=== PATIENT | female | born 2000 | race Caucasian/White ===

== ENCOUNTER 2024-07-26 20:12 | Emergency (ER) | payer MEDICAID, SELFPAY ==
--- OUTSIDE RECORDS SUMMARY | 2024-07-26 20:15 | XMS_ITS | Referral Summary ---
Author Organization [place] Address [address] [place] [address] Care Team Providers Care Potato Inspector Name Role Phone [facility], [facility] Primary Care Provider Allergies No known active allergies Social History Tobacco Use Types Packs/Day Years Used Date Smoking Tobacco: Never Assessed Comments Unknown Sex and Gender Information Value Date Recorded Sex Assigned at Not on file Legal Sex Female 4:37 AM MANAGER OF PHOTOGRAPHY Gender Identity Not on file Sexual Orientation Not on file Last Filed Vital Signs Vital Sign Reading Time Taken Comments Blood Pressure 150/108 05/10/2019 11:26 PM MANAGER OF PHOTOGRAPHY Pulse 90 05/10/2019 11:26 PM MANAGER OF PHOTOGRAPHY Temperature 36.4 C (97.6 F) 05/10/2019 8:11 PM MANAGER OF PHOTOGRAPHY Respiratory Rate 18 05/10/2019 8:11 PM MANAGER OF PHOTOGRAPHY Oxygen Saturation 100% 05/10/2019 11:28 PM MANAGER OF PHOTOGRAPHY Inhaled Oxygen Concentration - - Weight 81.2 kg (179 lb) 05/10/2019 10:32 PM MANAGER OF PHOTOGRAPHY Height - - Body Mass Index - - Plan of Treatment Not on file Insurance [place] Care Teams Potato Inspector Relationship Specialty Start Date End Date [address] [address] PCP - General 05/10/19
--- OUTSIDE RECORDS SUMMARY | 2024-07-26 20:15 | XMS_ITS | Clinical Summary ---
Author Organization [email or web address] Address [place], [place] [address] Care Team Providers Care Interior Design Professor Name Role Phone Jama Bustillos MD Unavailable [phone] Laila Gaytan MD Primary Care Provider Allergies No known active allergies Medications ketoconazole 2% shampoo (NIZORAL) 2 % shampooIndications :Seborrheic dermatitis of scalp Shampoo the hair thoroughly each day for 3 days. 120 mL 1 08/03/19 21 Active polyethylene glycoL (MIRALAX) 17 gram/dose powderIndications: Chronic constipation Take 17 g by mouth 2 times daily if needed for Constipation. 1 jar 11 08/03/19 21 Active Wrq-Sh-Ezotaoad 0.18/0.215/0.25 mg-25 mcg tablet Take 1 Tablet by mouth once daily. 10/16/19 22 Active meclizine (ANTIVERT) 25 mg tabletIndications: Vertigo Take 1 Tablet (25 mg) by mouth 3 times daily if needed for Vertigo. 30 Tablet 07/25/19 23 Active krill oil 500 mg cap Take 1 Capsule by mouth once daily. 0 08/28/19 23 Active Red Yeast Rice Extract 600 mg capIndications:Mix ed hyperlipidemia 1200 mg daily 0 08/28/19 23 Active spironolactone (ALDACTONE) 50 mg tabletIndications: PCOS (polycystic ovarian syndrome),Other acne Take 1 Tablet (50 mg) by mouth once daily. 90 Tablet 3 01/28/20 24 Active levothyroxine (SYNTHROID) 75 mcg tabletIndications: Other specified hypothyroidism TAKE 1 TABLET BY MOUTH 6 DAYS PER WEEK AND 1/2 TABLET ON SUNDAYS. 90 Tablet 3 02/01/20 24 Active metFORMIN (GLUCOPHAGE XR) 500 mg Extended-Release tabletIndications: PCOS (polycystic ovarian syndrome) TAKE 4 TABLETS BY MOUTH EVERY MORNING 360 Tablet 1 03/09/20 24 Active Additional Information Patient taking differently: 500 mg Oral DAILY, TAKE 2 TABLETS BY MOUTH EVERY MORNING, Reported on 06/25/2024 semaglutide, weight loss, (Wegovy) 0.5 mg/0.5 mL subcutaneous penIndications:Obe sity (BMI 30-39.9),PCOS (polycystic ovarian syndrome) Inject 0.5 mg subcutaneous once weekly. 4 Pen 11 04/22/20 24 Active citalopram (CELEXA) 20 mg tabletIndications: Anxiety Take 1 Tablet (20 mg) by mouth once daily in the morning. 100 Tablet 3 06/25/20 24 Active citalopram (CELEXA) 10 mg tabletIndications: Anxiety Take 1 Tablet (10 mg) by mouth once daily in the morning. Take in addition to 20 mg tablet for total of 30 mg daily. 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 CVA, old, dysarthria - per CT in Jul 19982010 Deviated nasal septum 01/12/2009 Unspecified delay in development(315.9) 02/25/20 08 Overview (02/25/2008): L hemiplegia probably due to CVA Hemiplegia is now resolved Delayed growth and development 02/25/2008 Overview (04/26/2021): L hemiplegia probably due to CVA Hemiplegia is now resolved Resolved Problems Problem Noted Date Diagnosed Date Resolved Date Hemiplegia 08/24/2010 08/24/2010 Nose disorder 12/06/2008 01/12/2009 Overview (12/06/2008): abnormal bone in nose causing nose bleeds Encounters Date Type Department Care Team Description 06/25/2024 12:40 PM GRADES 9 12 TUTOR Telemedicine [facility] [address] [place] [address] Laila Gaytan MD Medication Management (Citalopram, taking 30 MG, needing changed, /) 06/25/2024 Travel 06/07/2024 Refill [facility] [address] [place] [address] Laila Gaytan MD Refill Request (Citalopram) 05/12/2024 Telephone [facility] [address] [place] [address] Jama Bustillos MD Prior Authorization (levothyroxine (SYNTHROID) 75 mcg tablet EXCLUDED) 05/12/2024 Telephone [facility] [address] [place] [address] Jama Bustillos MD Prior Authorization (semaglutide, weight loss, (Wegovy) 0.5 mg/0.5 mL subcutaneous pen (Secondary Ins) PA NOT NEEDED) 05/11/2024 Telephone [facility] [address] [place] [address] Jama Bustillos MD request letter for [facility] from Last 3 Months Immunizations Name Administration Dates Next Due COVID-19 vaccine ([employer] NTech 30mcg/0.3mL) FLORY VALENTINO 02/04/2021 DTaP 12/21/2003, 9,1998,1997 DTaP-HIB (TriHIBIT) 10/03/1999 HIB PRP-T (ActHIB,Hiberix) 1998,1998 ,1998 Hepatitis B (Peds) 1998,1998, 998 Inactivated Polio Vaccine 12/21/2003,,1998,1997 Influenza, IIV3 (Age >=3 years) 08/23/2006,07/08 Influenza, IIV4 05/13/2015 MMR 12/21/2003,10/03/1999 Tdap 03/28/2023,08/24/2010 Family History Medical History Relation Name Comments Good Health Brother 1 Good Health Brother 2 Good Health Father Good Health Mother Relation Name Status Comments Brother 1 Brother 2 Father Mother Social History Tobacco Use Types Packs/Day Years Used Date Smoking Tobacco: Never Smokeless Tobacco: Never Tobacco Cessation:Counseling Given: Yes Comments:no exposure Alcohol Use Standard Drinks/Week Comments No 0 (1 standard drink = 0.6 oz pur e alcohol) PHQ-2 Answer Date Recorded PHQ-2 TOTAL SCORE 0 08/03/2020 Social Connections Answer Date Recorded Frequency of Communication with Friends and Fami ly 0 05/15/2022 Financial Resource Strain Answer Date R ecorded Difficulty of Paying Living Expenses 3 05/15/2022 Difficulty of Paying Living Expenses Not on file 05/15/2022 Food Insecurity Answer Date Recorded Worried About Running Out of Food in the Last Ye ar 1 05/15/2022 Transportation Needs Answer Date Record ed Lack of Transportation (Medical) 1 05/15/2022 Housing Stability Answer Date Recorded Unable to Pay for Housing in the Last Year 1 05/15/2022 Comments No Sex and Gender Information Value Date Recorded Sex Assigned at Not on file Legal Sex Female 5:40 AM GRADES 9 12 TUTOR Gender Identity Female 08/08/2021 2:54 PM GRADES 9 12 TUTOR Sexual Orientation Not on file Obstetrics History Last Filed Vital Signs Vital Sign Reading Time Taken Comments Blood Pressure 112/76 01/28/2024 1:08 PM CDT Pulse 88 01/28/2024 1:08 PM CDT Temperature 36.8 C (98.3 F) 01/25/2020 8:40 AM CDT Respiratory Rate 12 01/28/2024 1:08 PM CDT Oxygen Saturation 99% 03/28/2023 1:13 PM CDT Inhaled Oxygen Concentration - - Weight 85.7 kg (189 lb) 01/28/2024 1:08 PM CDT Height 153.7 cm (5' 0.5) 05/07/2023 1:53 PM CDT Body Mass Index 36.3 05/07/2023 1:53 PM CDT Plan of Treatment Upcoming Encounters Date Type Department Care Team (Late st Contact Info) Description 08/03/2024 12:50 PM GRADES 9 12 TUTOR Office Visit [facility] [address] [place], [place] [id number] Jama Bustillos MD [address] [place] [address] Health Maintenance Due Date Last Done Comments HIV for age 15-65 2013 HPV series for age 9-26 (1 - 3-dose series) 2013 Hepatitis C screening for age 18-79 2016 Pap test for age 21-65 2019 Depression screening for age 12+ 08/03/2021 08/03/2020, 10/08/2018, 06/16/2018, Additional history exists COVID-19 vaccine series (2023- season) 2024 02/25/2021, 02/04/2021 Influenza for age 9-49 03/08/2024 5, 08/23/2006, 07/08/2002 BMI (ht and wt on same day) for age 18+ 05/07/2024 05/07/2023, 07/25/2022, 05/15/2022, Additional history exists Tetanus booster 03/28/2033 03/28/2023, 08/24/2010 Tdap Completed 03/28/2023, 08/24/2010 Pneumococcal series for age 6-49 Aged Out No longer eligible based on patient's age to complete this topic Insurance MEDICAID Care Teams Interior Design Professor Relationship Specialty Start Date End Date Laila Gaytan MD [address] [place] [address] PCP - General Family Practice 03/29/23 Jama Bustillos MD [address] [place] [address] Endocrinology Endocrinology 05/31/21
--- OUTSIDE RECORDS SUMMARY | 2024-07-26 20:15 | XMS_ITS | Clinical Summary ---
Author Organization [facility] Address [address] [place] [address] Care Team Providers Care Drapery Supervisor Name Role Phone [facility], [facility] Primary Care Provider Allergies No known active allergies Social History Tobacco Use Types Packs/Day Years Used Date Smoking Tobacco: Never Assessed Comments Unknown Sex and Gender Information Value Date Recorded Sex Assigned at Not on file Legal Sex Female 4:37 AM CIGAR HEAD STRINGER Gender Identity Not on file Sexual Orientation Not on file Last Filed Vital Signs Vital Sign Reading Time Taken Comments Blood Pressure 150/108 05/10/2019 11:26 PM CIGAR HEAD STRINGER Pulse 90 05/10/2019 11:26 PM CIGAR HEAD STRINGER Temperature 36.4 C (97.6 F) 05/10/2019 8:11 PM CIGAR HEAD STRINGER Respiratory Rate 18 05/10/2019 8:11 PM CIGAR HEAD STRINGER Oxygen Saturation 100% 05/10/2019 11:28 PM CIGAR HEAD STRINGER Inhaled Oxygen Concentration - - Weight 81.2 kg (179 lb) 05/10/2019 10:32 PM CIGAR HEAD STRINGER Height - - Body Mass Index - - Plan of Treatment Not on file Insurance [place] Care Teams Drapery Supervisor Relationship Specialty Start Date End Date [address] [address] PCP - General 05/10/19
--- OUTSIDE RECORDS SUMMARY | 2024-07-26 20:16 | XMS_ITS | Continuity of Care Document ---
Author Organization [facility] Address [address] [address] [place] [address] Phone Care Team Providers Care Printed Circuit Board Drafter Name Role Phone No Information Unavailable Unavailable Allergies, Adverse Reactions, Alerts Substance Reaction Status Criticality No Known Allergies Active No Inform ation Medications Medication Instructions Dosage Effective Dates (start - stop) Status Comments omeprazole 20 mg capsule,delayed release take 1 capsule by oral route every day 30 minutes to 1 hour before a meal 20 MG - Active Tirosint 75 mcg capsule take 1 capsule by oral route every day 75 MCG - Active citalopram 20 mg tablet take 1 tablet by oral route every day 20 MG - Active citalopram 10 mg tablet take 1 tablet by oral route every day 10 MG - Active ranitidine 300 mg capsule take 1 capsule by oral route every day at bedtime - Active Control Pill ORAL TABLET Take one tablet by mouth daily - Active minocycline 100 mg capsule take 1 capsule by oral route every day 100 MG - Active trazodone 50 mg tablet take 1 tablet by oral route every day after meals 50 MG - Active Procedures Procedure Date Office Cons New/estab Mod Routine Serum Collection Gg; Iga, Igd, Igg, Igm, Ea C-reactive Prot Advance Directives Directive Yes / No Effective Date File Name No Information Encounters Encounter Description Practice Location Reason(s) For Visit Diagnoses Date Provider Providers Copied on Encounter [facility], [address] [address], [place], [id number], [place] tel:[phone] No Information 0 No Information [facility], [address] [address], [place], [id number], [place] tel:[phone] [facility] Epigastric painIrregular bowel habits [address] [place] [address], [id number], [place]. tel:[phone] Office Cons New/estab Mod [facility], [address] [address], [place], [id number], [place] tel:[phone] [facility] GI Symptoms or Concerns (chief complaint) Epigastric painIrregular bowel habitsDietary counseling and surveillanceEssen tial (primary) hypertension Alexandr Green. [address] [place] [address], [id number], [place]. [phone] Referring Provider: Twin Diaz MD W, [address] [place] [address], [place], [address]. tel:[phone] [facility], [address] [address], [place], [id number], [place] tel:[phone] [facility] No Information 9 Kirit Hinojosa. [address] [place] [address], [id number], [place]. tel:[phone] Family History Family Member Type Diagnosis Age At Onset Mother Problem (finding) Silverio's Father Problem (finding) Stomach Ulcer Brother Problem (finding) Alive and well Mother Problem (finding) PCOS Father Problem (finding) Alive and well Immunizations Vaccine Date Status Comments Fluzone Quad 6mo or older administered Note: [facility] bi-direct ional interface ; Source: Other Registry tetanus toxoid, reduced diphtheria toxoid, and acellular pertussis vaccine, adsorbed administered Note: [facility] bi-direct ional interface ; Source: Other Registry Influenza, seasonal, injectable administe red Note: [facility] bi- directional interface ; Source: Other Registry diphtheria, tetanus toxoids and acellular pertussis vaccine administered Note: [facility] b i-directional interface ; Source: Other Registry measles, mumps and rubella virus vaccine administered Note: [facility] bi-direct ional interface ; Source: Other Registry poliovirus vaccine, inactivated administe red Note: [facility] bi- directional interface ; Source: Other Registry Influenza, seasonal, injectable administe red Note: [facility] bi- directional interface ; Source: Other Registry Payers Payer name Insurance type Covered republican ID Authoriza tion(s) No Information Social History Type Description Quantity Date Captured Comments Sex Female Smoking Status No Information Chief Complaint And Reason For Visit No Information Reason For Referral Reason For Referral No Information Plan Of Treatment Date Type Action Status Goal Lifestyle education regardin g diet completed Referral Ordered: EGD Appointment date/timeframe: 07/21/2019 ordered Referral Ordered: Colonoscopy Appointment date/timeframe: 07/21/2019 ordered Referral Ordered: HIDA Scan WITH Ejection Fraction Appointment date/timeframe: -today ordered Referral Ordered: follow-up visit 1 Month Appointment date/timeframe: 1 Month ordered History Of Present Illness Encounter Date Complaint History Of Prese nt Illness GI Symptoms or Concerns Tierra Doherty is a very pleasant 19-year-old woman with a history of autism, who presents for right upper quadrant and epigastric pain, which she has had since the end of February of this year. She is sent by her primary care provider, Dr. Twin Diaz.She has been to the emergency room a couple of times for this and had extensive workup previously. Workup includes blood testing at least from May 07, which showed essentially a normal CBC with differential and CMP. She also reports some thyroid testing that did show a low thyroid and was just recently started on thyroid replacement therapy in the last week. She has also had urine testing, which did show blood and positive leukocyte esterase and bacteria, but was also positive for squamous cells, so likely represented contamination and she was not treated given that she had no urinary symptoms. 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
[2024-07-26 20:22] VITALS: BP 142/92; PULSE 87; RESP 16; TEMP 36.6; O2SAT 100; BMI 36.6
--- NOTE | 2024-07-26 20:35 | CRLHL7_ITS ---
For Patients: As a result of the Century Cures Act, medical imaging exams and procedure reports are released immediately into your electronic medical record. You may view this report before your referring provider. If you have questions, please contact your health care provider. INDICATION: Right lower extremity pain. TECHNIQUE: Ultrasound venous duplex lower right extremity. Compression venous exam was performed using augustine-scale, color Doppler, and spectral Doppler analysis. COMPARISON: None. FINDINGS: Deep veins: Sonographic imaging demonstrates the right common femoral, deep femoral, superficial femoral, popliteal, posterior tibial and the contralateral left common femoral veins to be fully compressible with normal color Doppler blood flow. Superficial veins: Greater saphenous vein is fully compressible. IMPRESSION: No right lower extremity DVT identified. Dictated by Eb Brady MD @ 07/26/2024 9:51:50 PM (Electronically Signed)
--- NOTE | 2024-07-26 20:35 | CRLHL7_ITS ---
For Patients: As a result of the Century Cures Act, medical imaging exams and procedure reports are released immediately into your electronic medical record. You may view this report before your referring provider. If you have questions, please contact your health care provider. INDICATION: Knee pain. TECHNIQUE: Right knee 2 views. COMPARISON: None. FINDINGS: No acute fractures or malalignment. Multipartite patella. No significant joint effusion. Joint spaces are maintained. Soft tissues are grossly unremarkable. IMPRESSION: 1. No acute osseous abnormality. 2. Incidental note of a multipartite patella, a normal variant. Dictated by Holland Leggett MD @ 07/26/2024 9:22:11 PM (Electronically Signed)
--- OUTSIDE RECORDS SUMMARY | 2024-07-26 20:52 | XMS_ITS | Clinical Summary ---
Author Organization [place] Address [address] [place] [address] Care Team Providers Care Chemotherapist Name Role Phone [facility], [facility] Primary Care Provider Allergies No known active allergies Social History Tobacco Use Types Packs/Day Years Used Date Smoking Tobacco: Never Assessed Comments Unknown Sex and Gender Information Value Date Recorded Sex Assigned at Not on file Legal Sex Female 4:37 AM ELECTROPLATER Gender Identity Not on file Sexual Orientation Not on file Last Filed Vital Signs Vital Sign Reading Time Taken Comments Blood Pressure 150/108 05/10/2019 11:26 PM ELECTROPLATER Pulse 90 05/10/2019 11:26 PM ELECTROPLATER Temperature 36.4 C (97.6 F) 05/10/2019 8:11 PM ELECTROPLATER Respiratory Rate 18 05/10/2019 8:11 PM ELECTROPLATER Oxygen Saturation 100% 05/10/2019 11:28 PM ELECTROPLATER Inhaled Oxygen Concentration - - Weight 81.2 kg (179 lb) 05/10/2019 10:32 PM ELECTROPLATER Height - - Body Mass Index - - Plan of Treatment Not on file Insurance [place]BS [place] Care Teams Chemotherapist Relationship Specialty Start Date End Date [address] [address] PCP - General 05/10/19
--- OUTSIDE RECORDS SUMMARY | 2024-07-26 20:52 | XMS_ITS | Clinical Summary ---
Author Organization [facility] Address [place], [place] [address] Care Team Providers Care Cell Inspector Name Role Phone Jama Bustillos MD Unavailable [phone] Laila Gaytan MD Primary Care Provider Allergies [...] Constipation. 1 jar 11 08/03/19 21 Active Xkk-Iz-Jmorkoim 0.18/0.215/0.25 mg-25 mcg tablet Take 1 Tablet [...] Department Care Team Description 06/25/2024 12:40 PM BILLET ASSEMBLER Telemedicine [facility] [address] [place] [address] Laila Gaytan MD Medication Management (Citalopram, taking 30 MG, needing changed, /) 06/25/2024 Travel 06/07/2024 Refill [facility] [address] [place] [address] Laila Gaytan MD Refill Request (Citalopram) 05/12/2024 Telephone [facility] [address] [place] [address] Jama Bustillos MD Prior Authorization (levothyroxine (SYNTHROID) 75 mcg tablet EXCLUDED) 05/12/2024 Telephone [facility] [address] [place] [address] Jama Bustillos MD Prior Authorization (semaglutide, weight loss, (Wegovy) 0.5 mg/0.5 mL subcutaneous pen (Secondary Ins) PA NOT NEEDED) 05/11/2024 Telephone [facility] [address] [place] [address] Jama Bustillos MD request letter for [facility] from Last 3 Months Immunizations Name Administration Dates Next Due COVID-19 vaccine ([employer] NTech 30mcg/0.3mL) FLORY VALENTINO 02/04/2021 DTaP 12/21/2003, [...] on file Legal Sex Female 5:40 AM BILLET ASSEMBLER Gender Identity Female 08/08/2021 2:54 PM BILLET ASSEMBLER Sexual Orientation Not on file Obstetrics History [...] st Contact Info) Description 08/03/2024 12:50 PM BILLET ASSEMBLER Office Visit [facility] [address] [place], [place] [id number] Jama Bustillos MD [address] [place] [address] Health Maintenance Due Date Last [...] complete this topic Insurance MEDICAID Care Teams Cell Inspector Relationship Specialty Start Date End Date Laila Gaytan MD [address] [place] [address] PCP - General Family Practice 03/29/23 Jama Bustillos MD [address] [place] [address] Endocrinology Endocrinology 05/31/21
--- OUTSIDE RECORDS SUMMARY | 2024-07-26 20:52 | XMS_ITS | Referral Summary ---
Author Organization [facility] Address [address] [place] [address] Care Team Providers Care Rose Grader Name Role Phone [facility], [facility] Primary Care Provider Allergies No known active allergies Social History Tobacco Use Types Packs/Day Years Used Date Smoking Tobacco: Never Assessed Comments Unknown Sex and Gender Information Value Date Recorded Sex Assigned at Not on file Legal Sex Female 4:37 AM SUMMONS SERVER Gender Identity Not on file Sexual Orientation Not on file Last Filed Vital Signs Vital Sign Reading Time Taken Comments Blood Pressure 150/108 05/10/2019 11:26 PM SUMMONS SERVER Pulse 90 05/10/2019 11:26 PM SUMMONS SERVER Temperature 36.4 C (97.6 F) 05/10/2019 8:11 PM SUMMONS SERVER Respiratory Rate 18 05/10/2019 8:11 PM SUMMONS SERVER Oxygen Saturation 100% 05/10/2019 11:28 PM SUMMONS SERVER Inhaled Oxygen Concentration - - Weight 81.2 kg (179 lb) 05/10/2019 10:32 PM SUMMONS SERVER Height - - Body Mass Index - - Plan of Treatment Not on file Insurance [place] Care Teams Rose Grader Relationship Specialty Start Date End Date [address] [address] PCP - General 05/10/19
--- OUTSIDE RECORDS SUMMARY | 2024-07-26 20:52 | XMS_ITS | Continuity of Care Document ---
Author Organization [facility] Address [address] [address] [place] [address] Phone Care Team Providers Care Beef [employer]attle [employer] Manager Name Role Phone No Information Unavailable Unavailable [...] Diagnoses Date Provider Providers Copied on Encounter [facility], [address] [address], [place], [id number], [place] tel:[phone] No Information 0 No Information [facility], [address] [address], [place], [id number], [place] tel:[phone] [facility] Epigastric painIrregular bowel habits 9 Alexandr Green. [address] [place] [address], [id number], [place]. tel:[phone] Office Cons New/estab Mod [facility], [address] [address], [place], [id number], [place] tel:[phone] [facility] GI Symptoms or Concerns (chief complaint) Epigastric painIrregular bowel habitsDietary counseling and surveillanceEssen tial (primary) hypertension Alexandr Green. [address] [place] [address], [id number], [place]. [phone] Referring Provider: Twin Diaz MD W, [address] [place] [address], [place], [address]. tel:[phone] [facility], [address] [address], [place], [id number], [place] tel:[phone] [facility] No Information 9 Kirit Hinojosa. [address] [place] [address], [id number], [place]. tel:[phone] Family History Family Member Type Diagnosis Age [...] Registry Payers Payer name Insurance type Covered constitution party ID Authoriza tion(s) No Information Social History [...]
--- NOTE | 2024-07-26 21:09 | ED.LOWEXIN ---
HPI - Extremity Injury (Lower) General Date Seen: 07/26/24 Chief Complaint: Extremity Pain/Injury, Lower Stated Complaint: Pain behind right knee Time Seen by Provider: 07/26/24 20:17 Source: patient and family Mode of arrival: ambulatory Limitations: no limitations History of Present Illness HPI Narrative: This very sweet 24-year-old female presents here with her mother with a history of pain behind her right knee, this is been for last 2 days, but worse today trying some Tylenol and ibuprofen, rather regularly in the dosage. Is able to walk normally, no history of trauma or injury or falls, is on control pills, no history of previous DVTs or clots. Does have a history of a previous CVA, takes oral contraceptives because of PCOS and dysmenorrhea. No history of smoking, denies any chest pain shortness of breath coughing, weakness or path feeling like she might pass out. No history of redness of the leg, no history of previous infections. Other symptoms: none Treatments prior to arrival: NSAIDS Related Data Home Medications ?Medication ?Instructions ?Recorded ?Confirmed levothyroxine 75 mcg tablet 75 mcg PO 04/02/23 03/18/24 meclizine 25 mg tablet 25 mg PO 3XD PRN 04/02/23 07/26/24 metformin 500 mg tablet,extended 1,000 mg PO BID 04/02/23 07/26/24 release 24 hr spironolactone 50 mg tablet 50 mg PO DAILY 04/02/23 07/26/24 Previous Rx's ?Medication ?Instructions ?Recorded citalopram 10 mg tablet 10 mg PO QDAY #90 tabs 03/18/24 citalopram 20 mg tablet 20 mg PO QDAY #90 tabs 03/18/24 norgestimate 0.18 mg/0.215 mg/0.25 1 tab PO DAILY #84 tabs 03/18/24 mg-ethinyl estradiol 25 mcg tablet (Tri-Lo-Shelly) Allergies Allergy/AdvReac Type Severity Reaction Status Date / Time No Known Drug Allergies Allergy Verified 03/18/24 11:09 Review of Systems Status of ROS: Reports: 10 or more systems reviewed and unremarkable except as noted in History and below [facility] Medical History History of CVA (cerebrovascular accident) ?Z86.73 - Personal history of transient ischemic attack (TIA), and cerebral infarction without residual deficits (ICD-10) Surgical History Dermoid cyst of right ovary (08/25/19) ?D27.0 - Benign neoplasm of right ovary (ICD-10) Family History Mother Anxiety PCOS (polycystic ovarian syndrome) Raynaud's disease Silverio's esophagus Grandmother Breast cancer Thyroid disease Social History Narrative: Works part-time at a [employer]. Highest level of school completed/degree received: high school graduate Smoking Status: Never smoker Do you use any of these nicotine containing products: None Second hand tobacco smoke exposure: No How often do you have a drink containing alcohol: never How often do you have six or more drinks on one occasion: Never AUDIT-C Alcohol total score: 0 Non-prescribed substance use: denies use Do you think of yourself as: straight/heterosexual Gender Identity: female Are you currently sexually active: No service: No Exam Narrative: Exam Narrative: On examination she is in no apparent distress she is seen in room 6 with her mother, vital signs are listed, with slightly elevated diastolic pressure but otherwise normal. Pupils equal round reactive to light no scleral icterus redness TMs are normal oropharynx normal chest is clear heart sounds are normal abdomen is soft no guarding no organomegaly her and right knee has full range of motion from 0-110. She has a little bit of fullness around the insertion of the hamstrings on the popliteal area, but there is no other masses noted. No tenderness to the knee there is no effusion, solid ACL PCL and lateral medial collateral ligaments, no swelling or edema noted distally. With normal DP and posterior tibial pulses. 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 I discuss use of pain medication and follow-up with orthopedics if ongoing signs and symptoms she was very relieved by this as she wants to participate next weekend in [place]. She will return as needed. Vital Signs Vital signs: Initial Vital Signs Temperature 98 F 07/26/24 20:22 Temperature Source Temporal Artery Scan 07/26/24 20:22 Pulse Rate 87 07/26/24 20:22 Respiratory Rate 16 07/26/24 20:22 Blood Pressure 142/92 H 07/26/24 20:22 Blood Pressure Mean 108 H 07/26/24 20:22 Blood Pressure Position Supine 07/26/24 20:22 Pulse Oximetry 100 07/26/24 20:22 Oxygen Delivery Method Room Air 07/26/24 20:22 Vital Signs Temperature 98 F 07/26/24 20:22 Pulse Rate 87 07/26/24 20:22 Respiratory Rate 16 07/26/24 20:22 Blood Pressure 142/92 H 07/26/24 20:22 Pulse Oximetry 100 07/26/24 20:22 Oxygen Delivery Method Room Air 07/26/24 20:22 Temperature 98 F 07/26/24 20:22 Pulse Rate 87 07/26/24 20:22 Respiratory Rate 16 07/26/24 20:22 Blood Pressure 142/92 H 07/26/24 20:22 Pulse Oximetry 100 07/26/24 20:22 Oxygen Delivery Method Room Air 07/26/24 20:22 MDM - Extremity Injury (Lower) MDM Narrative Medical decision making narrative: Discussed with them the history I suspect that this may be related to I hamstrings type injury, possibility of a Ng cyst verses DVT, do not think this is ligamentous or any in intra knee problem, given what I am seeing on examination and her range of motion. We will do an x-ray along with an ultrasound. Differential Diagnosis Differential diagnosis: Likely ankle sprain and strain and acute internal derangement of knee Imaging Data Knee x-ray: Attestation: I have reviewed the pertinent imaging results. My impression: Knee x-ray shows a bipartite patella. But otherwise normal. No effusion no acute change Radiologist's impression: Patient: Simona Doherty MR#: [id number] : 2000 Acct:[id number] Loc: ED Service Date: 07/26/[address]: Ordering Physician: Franki Alanis M.D. Date of Service: 07/26/24 Procedure(s): XR knee RT 2V Accession Number(s): [id number] cc: Laila Gaytan M.D.; Franki Alanis M.D.~ For Patients: As a result of the Cures Act, medical imaging exams and procedure reports are released immediately into your electronic medical record. You may view this report before your referring provider. If you have questions, please contact your health care provider. INDICATION: Knee pain. TECHNIQUE: Right knee 2 views. COMPARISON: None. FINDINGS: No acute fractures or malalignment. Multipartite patella. No significant joint effusion. Joint spaces are maintained. Soft tissues are grossly unremarkable. IMPRESSION: 1. No acute osseous abnormality. 2. Incidental note of a multipartite patella, a normal variant. Dictated by Holland Leggett MD @ 07/26/2024 9:22:11 [place] [address] Diagnostic Imaging Report Patient: Simona Doherty MR#: [id number] : 2000 Acct:[id number] Loc: ED Service Date: 07/26/[address]: Ordering Physician: Franki Alanis M.D. Date of Service: 07/26/24 Procedure(s): US venous LE RT Accession Number(s): [id number] cc: Laila Gaytan M.D.; Franki Alanis M.D.~ For Patients: As a result of the s Act, medical imaging exams and procedure reports are released immediately into your electronic medical record. You may view this report before your referring provider. If you have questions, please contact your health care provider. INDICATION: Right lower extremity pain. TECHNIQUE: Ultrasound venous duplex lower right extremity. Compression venous exam was performed using augustine-scale, color Doppler, and spectral Doppler analysis. COMPARISON: None. FINDINGS: Deep veins: Sonographic imaging demonstrates the right common femoral, deep femoral, superficial femoral, popliteal, posterior tibial and the contralateral left common femoral veins to be fully compressible with normal color Doppler blood flow. Superficial veins: Greater saphenous vein is fully compressible. IMPRESSION: No right lower extremity DVT identified. 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 Activity Level: Light activity Prescriptions: No Action metformin 500 mg tablet extended release 24 hr 1,000 mg PO BID spironolactone 50 mg tablet 50 mg PO DAILY levothyroxine 75 mcg tablet 75 mcg PO meclizine 25 mg tablet 25 mg PO 3XD PRN norgestimate-ethinyl estradiol [Tri-Lo-Shelly] 0.18/0.215/0.25 mg-25 mcg tablet 1 tab PO DAILY Qty: 84 3RF citalopram 20 mg tablet 20 mg PO QDAY Qty: 90 3RF citalopram 10 mg tablet 10 mg PO QDAY Qty: 90 3RF Follow Up/Referrals: Laila Gaytan MD [Primary Care Provider] - Stand Alone Forms: MyHealth Info Instructions
== END 2024-07-26 22:17 | disposition home or self-care (01) ==
PROVIDERS: Emergency Provider Family Medicine; PCP Family Medicine
DX: M25.561 Pain in right knee (principal)
CPT/HCPCS: 73560; 93971; 99283; 99284